=== PATIENT | female | born 1935 | race Caucasian/White ===

== ENCOUNTER 2016-10-09 14:19 | Outpatient (CLI) | payer MEDICARE ==
[2016-10-09 14:51] LABS: Hemoglobin 8.5 g/dL (12.0-16.0); Mean Corpuscular HGB CONC 32.9 g/dL (32.0-36.0); Mean Corpuscular Hemoglobin 26.9 pg (27.0-31.0); Mean Corpuscular Volume 81.7 fl (81.0-99.0); Mean Platelet Volume 6.8 fL (7.4-10.4); Platelet Count 371 thou/uL (130-400); RBC Distribution Width 13.8 % (11.5-14.5); Red Blood Cell (RBC) Count 3.15 mill/uL (4.20-5.40); White Blood Cell (WBC) Count 6.6 thou/uL (4.8-10.8)
[2016-10-09 15:03] LABS: ALT (SGPT) 13 U/L (0-55); AST (SGOT) 15 U/L (5-34); Albumin 3.9 g/dL (3.4-4.8); Alkaline Phosphatase 88 U/L (40-150); Anion Gap 16 mmol/L (10-20); BUN (Urea Nitrogen) 27 mg/dL (9.8-20.1); Bilirubin, Total Less than 0.3 mg/dL (0.2-1.2); Calc. Creatinine Clearance 0 mL/min (70-130); Calcium 9.2 mg/dL (7.8-10.44); Carbon Dioxide 25 mmol/L (23-31); Chloride 104 mmol/L (98-107); Estimated GFR-MDRD 47; Globulin 2.6 g/dL (2.4-3.5); Glucose 86 mg/dL (83-110); Potassium 4.1 mmol/L (3.5-5.1); Protein, Total 6.5 g/dL (5.8-8.1); Sodium 141 mmol/L (136-145)
[2016-10-09 15:20] LABS: Free T4 (Free Thyroxine) 1.18 ng/dL (0.70-1.48); Thyroid Stimulating Hormone 7.3489 uIU/mL (0.35-4.94)
== END 2016-10-09 14:20 | disposition home or self-care (01) ==
LOC: MADLAB 14:19
PROVIDERS: ATTEND Specialist
DX: R53.83 Other fatigue (principal); I48.91 Unspecified atrial fibrillation; I10 Essential (primary) hypertension
CPT/HCPCS: 36415; 80053; 84439; 84443; 85027

== ENCOUNTER 2016-10-16 12:18 | Outpatient (CLI) | payer MEDICARE | END 2016-10-16 12:19 | disposition home or self-care (01) | LOC: MADLAB 12:18 | PROVIDERS: ATTEND Internal Medicine Gastroenterology | DX: D50.0 Iron deficiency anemia secondary to blood loss (chronic) (principal) | CPT/HCPCS: 36415; 82746 ==

== ENCOUNTER 2016-11-18 14:23 | Outpatient (CLI) | payer MEDICARE ==
[2016-11-18 15:11] LABS: Anion Gap 18 mmol/L (10-20); BUN (Urea Nitrogen) 23 mg/dL (9.8-20.1); Calc. Creatinine Clearance 0 mL/min (70-130); Calcium 9.4 mg/dL (7.8-10.44); Carbon Dioxide 23 mmol/L (23-31); Chloride 104 mmol/L (98-107); Estimated GFR-MDRD 55; Glucose 63 mg/dL (83-110); Potassium 4.7 mmol/L (3.5-5.1); Sodium 140 mmol/L (136-145)
--- NOTE | 2016-11-18 15:35 | RAD ---
FOUR VIEWS OF THE LEFT KNEE: Comparison: 02-15-14 History: Fell on concrete a few months ago, pain. FINDINGS: Four views of the left knee shows mild to moderate tricompartmental joint space narrowing and osteop hyte formation consistent with osteoarthritis. No knee effusion is seen. There is no evidence of f racture or dislocation. IMPRESSION: Moderate left knee osteoarthritis without acute osseous abnormality. POS: [facility]
--- NOTE | 2016-11-18 16:13 | RAD ---
FOUR VIEWS RIGHT KNEE: History: Fell two months with knee pain. FINDINGS: AP, lateral, and both oblique views of the right knee obtained. Images demonstrate joint space narrowing with medial compartment osteophytes compatible with moderat e to severe right knee osteoarthritis. Osteophytes also seen in the anterior compartment. Radiographic is not significantly changed since the previous comparison, 02-19-14. IMPRESSION: Moderate to severe right knee osteoarthritic changes. POS: [facility]
== END 2016-11-18 14:24 | disposition home or self-care (01) ==
LOC: MADLAB 14:23
PROVIDERS: ATTEND Internal Medicine Rheumatology
DX: M17.0 Bilateral primary osteoarthritis of knee (principal); M17.11 Unilateral primary osteoarthritis, right knee
CPT/HCPCS: 36415; 80048

== ENCOUNTER 2016-12-19 13:08 | Outpatient (CLI) | payer MEDICARE ==
[2016-12-19 13:39] LABS: Cardiac Risk 3.9 (Less than 4.5)
[2016-12-19 14:47] LABS: Bilirubin Negative (Negative); Blood, Urine Negative (Negative); Clarity Clear (Clear); Glucose, Urine (Dipstick) Negative (Negative); Leukocyte Small (Negative); Nitrite Negative (Negative); Protein, Urine (Dipstick) Negative (Neg-Trace); Specific Gravity, Urine 1.015 (1.005-1.030); Urobilinogen 0.2 mg/dL (0.2-1.0)
[2016-12-19 14:50] LABS: RBC/HPF 0-3 HPF (0-3)
[2016-12-19 14:53] LABS: Bacteria/HPF Rare-Few HPF (None Seen)
[2016-12-19 17:37] LABS: Creatinine, Urine 103.33 mg/dL (47-110); Microalbumin Urine 4.4 mg/dL (0.5-50.0); Microalbumin/Creat Ratio 42.6 mg/g (Less than 30)
== END 2016-12-19 13:09 | disposition home or self-care (01) ==
LOC: MADLAB 13:08
PROVIDERS: ATTEND Internal Medicine
DX: E78.5 Hyperlipidemia, unspecified (principal); N18.3 Chronic kidney disease, stage 3 (moderate)
CPT/HCPCS: 36415; 80061; 81001; 82043

== ENCOUNTER 2017-01-15 14:16 | Outpatient (CLI) | payer MEDICARE ==
[2017-01-15 14:51] LABS: #Basophils 0.1 thou/uL (0.0-0.2); #Eosinphils 0.1 thou/uL (0.0-0.7); #Lymphocytes 2.6 thou/uL (1.20-3.40); #Monocytes 0.8 thou/uL (0.11-0.59); #Neutrophils 4.2 thou/uL (1.40-6.50); %Eosinophils 1.8 % (0.0-10.0); %Lymphocytes 33.8 % (21.0-51.0); %Monocytes 10.1 % (0.0-10.0); %Neutrophils 53.2 % (42.0-75.0); Hemoglobin 12.3 g/dL (12.0-16.0); Mean Corpuscular HGB CONC 32.7 g/dL (32.0-36.0); Mean Corpuscular Hemoglobin 27.9 pg (27.0-31.0); Mean Corpuscular Volume 85.5 fl (81.0-99.0); Mean Platelet Volume 7.5 fL (7.4-10.4); Platelet Count 301 thou/uL (130-400); RBC Distribution Width 16.3 % (11.5-14.5); White Blood Cell (WBC) Count 7.8 thou/uL (4.8-10.8)
[2017-01-15 14:59] LABS: Hemoglobin A1c 5.4 % (4.0-6.0)
[2017-01-15 15:28] LABS: ALT (SGPT) 18 U/L (8-55); AST (SGOT) 19 U/L (5-34); Albumin 4.3 g/dL (3.4-4.8); Alkaline Phosphatase 82 U/L (40-150); Anion Gap 19 mmol/L (10-20); BUN (Urea Nitrogen) 27 mg/dL (9.8-20.1); Bilirubin, Total 0.3 mg/dL (0.2-1.2); Calc. Creatinine Clearance 0 mL/min (70-130); Calcium 9.4 mg/dL (7.8-10.44); Carbon Dioxide 22 mmol/L (23-31); Chloride 103 mmol/L (98-107); Estimated GFR-MDRD 47; Globulin 2.7 g/dL (2.4-3.5); Potassium 4.3 mmol/L (3.5-5.1); Sodium 140 mmol/L (136-145)
[2017-01-15 15:43] LABS: Thyroid Stimulating Hormone 2.8483 uIU/mL (0.35-4.94)
[2017-01-15 15:54] LABS: Bilirubin Negative (Negative); Blood, Urine Negative (Negative); Clarity Clear (Clear); Glucose, Urine (Dipstick) Negative (Negative); Nitrite Negative (Negative); Protein, Urine (Dipstick) Negative (Neg-Trace); Urobilinogen 0.2 mg/dL (0.2-1.0)
[2017-01-15 15:56] LABS: Leukocyte Small (Negative)
[2017-01-15 16:17] LABS: RBC/HPF 0-3 HPF (0-3); Squamous Epithelial 0-3 HPF (0-3)
[2017-01-15 16:18] LABS: Bacteria/HPF Rare-Few HPF (None Seen)
[2017-01-16 17:11] LABS: Iron 98 ug/dL (50-170); Iron Binding Capacity, Total 455 mcg/dL (265-497)
[2017-01-16 17:32] LABS: Ferritin 60.86 ng/mL (10-291)
[2017-01-16 17:35] LABS: Creatinine, Urine 115.61 mg/dL (47-110)
[2017-01-16 22:04] LABS: Glucose 45 mg/dL (83-110)
== END 2017-01-15 14:17 | disposition home or self-care (01) ==
LOC: MADLAB 14:16
PROVIDERS: ATTEND Specialist
DX: E78.5 Hyperlipidemia, unspecified (principal); D64.9 Anemia, unspecified; N18.3 Chronic kidney disease, stage 3 (moderate); E03.9 Hypothyroidism, unspecified; K92.1 Melena; R73.01 Impaired fasting glucose
CPT/HCPCS: 36415; 80053; 81001; 82570; 82728; 83036; 83540; 83550; 84156; 84443; 85025

== ENCOUNTER 2017-03-03 13:37 | Outpatient (CLI) | payer MEDICARE ==
[2017-03-03 14:43] LABS: Hemoglobin 12.1 g/dL (12.0-16.0)
== END 2017-03-03 13:38 | disposition home or self-care (01) ==
LOC: MADLAB 13:37
PROVIDERS: ATTEND Internal Medicine Gastroenterology
DX: D50.0 Iron deficiency anemia secondary to blood loss (chronic) (principal)
CPT/HCPCS: 36415; 85014; 85018

== ENCOUNTER 2017-05-22 10:33 | Outpatient (CLI) | payer MEDICARE ==
[2017-05-22 11:12] LABS: Hemoglobin A1c 5.3 % (4.0-6.0)
[2017-05-22 11:17] LABS: ALT (SGPT) 18 U/L (8-55); AST (SGOT) 16 U/L (5-34); Albumin 4.1 g/dL (3.4-4.8); Alkaline Phosphatase 87 U/L (40-150); Anion Gap 15 mmol/L (10-20); BUN (Urea Nitrogen) 29 mg/dL (9.8-20.1); Bilirubin, Total 0.3 mg/dL (0.2-1.2); Calc. Creatinine Clearance 0 mL/min (70-130); Calcium 9.6 mg/dL (7.8-10.44); Carbon Dioxide 23 mmol/L (23-31); Chloride 106 mmol/L (98-107); Estimated GFR-MDRD 42; Globulin 3.1 g/dL (2.4-3.5); Glucose 115 mg/dL (83-110); Potassium 4.1 mmol/L (3.5-5.1); Protein, Total 7.2 g/dL (6.0-8.3); Sodium 140 mmol/L (136-145)
[2017-05-22 11:36] LABS: #Basophils 0.1 thou/uL (0.0-0.2); #Eosinphils 0.1 thou/uL (0.0-0.7); #Lymphocytes 1.4 thou/uL (1.20-3.40); #Monocytes 0.5 thou/uL (0.11-0.59); #Neutrophils 3.5 thou/uL (1.40-6.50); %Basophils 0.9 % (0.0-1.0); %Eosinophils 2.5 % (0.0-10.0); %Lymphocytes 25.5 % (21.0-51.0); %Monocytes 9.4 % (0.0-10.0); %Neutrophils 61.8 % (42.0-75.0); Hemoglobin 12.2 g/dL (12.0-16.0); Mean Corpuscular HGB CONC 32.7 g/dL (32.0-36.0); Mean Corpuscular Hemoglobin 28.9 pg (27.0-31.0); Mean Corpuscular Volume 88.5 fl (81.0-99.0); Mean Platelet Volume 7.5 fL (7.4-10.4); Platelet Count 310 thou/uL (130-400); RBC Distribution Width 12.1 % (11.5-14.5); Red Blood Cell (RBC) Count 4.22 mill/uL (4.20-5.40); White Blood Cell (WBC) Count 5.6 thou/uL (4.8-10.8)
[2017-05-22 11:48] LABS: Bilirubin Negative (Negative); Blood, Urine Trace (Negative); Clarity Clear (Clear); Glucose, Urine (Dipstick) Negative (Negative); Leukocyte Small (Negative); Nitrite Negative (Negative); Protein, Urine (Dipstick) Negative (Neg-Trace); Urobilinogen 0.2 mg/dL (0.2-1.0); pH, Urine 5.5 (5.0-9.0)
[2017-05-22 12:45] LABS: Bacteria/HPF 1+ HPF (None Seen); RBC/HPF 0-3 HPF (0-3)
[2017-05-22 17:24] LABS: Iron 86 ug/dL (50-170); Iron Binding Capacity, Total 483 mcg/dL (265-497)
[2017-05-22 17:29] LABS: Creatinine, Urine 135.73 mg/dL (47-110)
== END 2017-05-22 10:34 | disposition home or self-care (01) ==
LOC: MADLAB 10:33
PROVIDERS: ATTEND Internal Medicine
DX: N18.3 Chronic kidney disease, stage 3 (moderate) (principal); D63.1 Anemia in chronic kidney disease; E78.5 Hyperlipidemia, unspecified; E03.9 Hypothyroidism, unspecified; K92.1 Melena; R73.01 Impaired fasting glucose
CPT/HCPCS: 36415; 80053; 81001; 82570; 82728; 83036; 83540; 83550; 84156; 84443; 85025

== ENCOUNTER 2018-06-19 09:00 | Outpatient (CLI) | payer MEDICARE ==
[2018-06-21 16:15] LABS: %Lymphocytes 29.9 % (21.0-51.0); %Neutrophils 58.7 % (42.0-75.0); Hemoglobin 12.9 g/dL (12.0-16.0); Manual Diff?? NO; Mean Corpuscular HGB CONC 32.4 g/dL (32.0-36.0); Mean Corpuscular Hemoglobin 28.9 pg (27.0-31.0); Mean Corpuscular Volume 89.3 fL (78.0-98.0); Mean Platelet Volume 7.1 fL (7.4-10.4); Platelet Count 401 thou/uL (130-400); RBC Distribution Width 13.1 % (11.5-14.5); Red Blood Cell (RBC) Count 4.46 mill/uL (4.20-5.40); White Blood Cell (WBC) Count 8.1 thou/uL (4.8-10.8)
[2018-06-21 16:16] LABS: #Basophils 0.1 thou/uL (0.0-0.2); #Eosinphils 0.1 thou/uL (0.0-0.7); #Lymphocytes 2.4 thou/uL (1.20-3.40); #Monocytes 0.7 thou/uL (0.11-0.59); #Neutrophils 4.7 thou/uL (1.40-6.50); %Basophils 1.2 % (0.0-1.0); %Eosinophils 1.8 % (0.0-10.0); %Monocytes 8.3 % (0.0-10.0)
[2018-06-21 16:17] LABS: Sodium 141 mmol/L (136-145)
[2018-06-21 16:18] LABS: Albumin 4.3 g/dL (3.4-4.8); Anion Gap 15 mmol/L (10-20); BUN (Urea Nitrogen) 32 mg/dL (9.8-20.1); Bilirubin, Total 0.3 mg/dL (0.2-1.2); Calc. Creatinine Clearance 0 mL/min (70-130); Calcium 9.8 mg/dL (7.8-10.44); Carbon Dioxide 22 mmol/L (23-31); Chloride 108 mmol/L (98-107); Cholesterol 200 mg/dL (< 200 Desired); Estimated GFR-MDRD 49; Globulin 3.1 g/dL (2.4-3.5); Glucose 97 mg/dL (83-110); Potassium 4.2 mmol/L (3.5-5.1); Protein, Total 7.4 g/dL (5.8-8.1)
[2018-06-21 16:19] LABS: ALT (SGPT) 9 U/L (8-55); AST (SGOT) 12 U/L (5-34); Alkaline Phosphatase 118 U/L (40-150); Cardiac Risk 3.5 (Less than 4.5); HDL Cholesterol 57 mg/dL (>60 Neg Risk); LDL Cholesterol, Calculated 126 mg/dL; Triglycerides 83 mg/dL (Less than 150)
[2018-06-22 12:28] LABS: Iron 119 ug/dL (50-170); Iron Binding Capacity, Total 514 mcg/dL (265-497)
== END 2018-06-19 09:01 | disposition home or self-care (01) ==
LOC: MADLAB 09:00
PROVIDERS: ATTEND Internal Medicine
DX: K92.1 Melena (principal); E78.5 Hyperlipidemia, unspecified; D64.9 Anemia, unspecified
CPT/HCPCS: 36415; 80053; 80061; 82728; 83540; 83550; 85025